=== PATIENT | male | born 1940 | race Caucasian/White ===

== ENCOUNTER 2016-09-14 11:04 | Emergency (ER) | payer MEDICARE, BC ==
[~2016-09-14] VITALS: Ht 177.8 cm; Wt 114.4 kg
[~2016-09-14 11:04] MED LIST: ASPI325T4 PO; ATOR80TA75 PO; CELE200C PO; HYDR-3138 PO; LISI1TAB7 PO; NAPR220T77 PO
[2016-09-14] MEDS ORDERED: MECLIZINE CHEWABLE 25 MG TAB ONE (11:54)
[2016-09-14] MEDS ORDERED: MECLIZINE CHEWABLE 25 MG TAB PO ONE (12:00)
[2016-09-14] MEDS ORDERED: SODIUM CHLORIDE FLUSH 10ML SYR IVF ONE (12:00)
[2016-09-14] MEDS ORDERED: SODIUM CHLORIDE 0.9% 1,000ML IVBOLUS ONE (12:00)
[2016-09-14 12:17] LABS: HEMOGLOBIN 15.8 g/dL (13.7-18.0)
[2016-09-14 12:29] LABS: BLOOD UREA NITROGEN 18 mg/dL (7-18)
[2016-09-14 12:35] LABS: IS PT STATUS REG ER OR PRE ER? YES
[2016-09-14 13:07] VITALS: BP 170/77
== END 2016-09-14 14:15 | disposition home or self-care (01) ==
LOC: ED 14:05
DX: R00.1 Bradycardia, unspecified (principal); I10 Essential (primary) hypertension; E78.5 Hyperlipidemia, unspecified; Z96.652 Presence of left artificial knee joint; Z87.891 Personal history of nicotine dependence
CPT/HCPCS: 36415; 70450; 80048; 82040; 84484; 85025; 93005; 96360; 99285; J7030

== ENCOUNTER → 2016-10-10 | Outpatient (CLI) | payer MEDICARE, BC | END | disposition home or self-care (01) | LOC: CFH 07:44 | PROVIDERS: ATTEND Licensed Practical Nurse | DX: I65.23 Occlusion and stenosis of bilateral carotid arteries (principal); Z87.891 Personal history of nicotine dependence | CPT/HCPCS: 93880; 93978 ==

== ENCOUNTER → 2016-11-09 | Outpatient (CLI) | payer MEDICARE, BC ==
[~2016-11-09] MED LIST changes: +REGADENOSON 0.4 MG/5 ML SYRINGE ONE
== END | disposition home or self-care (01) ==
LOC: CFH 08:03
PROVIDERS: ATTEND Internal Medicine Cardiovascular Disease
DX: R94.31 Abnormal electrocardiogram [ECG] [EKG] (principal); I10 Essential (primary) hypertension; E78.5 Hyperlipidemia, unspecified
CPT/HCPCS: 78452; 93017; 93306; A9502; J2785

== ENCOUNTER → 2016-12-11 | Outpatient (CLI) | payer MEDICARE, BC ==
[~2016-12-11] MED LIST changes: +OMNIPAQUE 350 MG/ML, 100ML BOTTLE ONE; -REGADENOSON 0.4 MG/5 ML SYRINGE ONE
== END | disposition home or self-care (01) ==
LOC: RAD 12:32
PROVIDERS: ATTEND Internal Medicine Cardiovascular Disease
DX: I70.0 Atherosclerosis of aorta (principal); R00.2 Palpitations
CPT/HCPCS: 36415; 71275; 74175; 82565; Q9967

== ENCOUNTER → 2017-08-12 | Outpatient (CLI) | payer MEDICARE, BC ==
[~2017-08-12] MED LIST changes: +ASPI325T17 PO; -ASPI325T4 PO; +ATOR-2 PO; -ATOR80TA75 PO; -HYDR-3138 PO; +HYDR-3237 PO; -OMNIPAQUE 350 MG/ML, 100ML BOTTLE ONE
== END | disposition home or self-care (01) ==
LOC: RAD 14:52
PROVIDERS: ATTEND Nurse Practitioner Family
DX: G31.89 Other specified degenerative diseases of nervous system (principal); S09.90XA Unspecified injury of head, initial encounter; W19.XXXA Unspecified fall, initial encounter; Y93.89 Activity, other specified; Y92.89 Other specified places as the place of occurrence of the external cause; Y99.8 Other external cause status
CPT/HCPCS: 70450

== ENCOUNTER 2017-12-11 17:00 | Inpatient (IN) | payer MEDICARE, BC ==
[~2017-12-11] VITALS: Ht 177.8 cm; Wt 106.1 kg
[~2017-12-11 17:00] MED LIST changes: +CEFD300C37 PO; +PHEN-418 PO
[2017-12-11] MEDS ORDERED: SODIUM CHLORIDE FLUSH 10ML SYR IVF ONE (17:30)
[2017-12-11 17:38] LABS: BASOPHILS # (AUTO) 0.11 x10^3/uL (0-0.1); BASOPHILS % (AUTO) 1 % (0-1); EOSINOPHILS # (AUTO) 0.27 x10^3/uL (0-0.4); EOSINOPHILS % (AUTO) 3 % (1-7); LYMPHOCYTES # (AUTO) 2.02 x10^3/uL (1-3.4); LYMPHOCYTES % (AUTO) 21 % (22-44); MD NO; MEAN CORPUSCULAR HEMOGLOBIN 30.8 pg (27.5-34.5); MEAN CORPUSCULAR HGB CONC 33.3 g/dL (33.2-36.2); MEAN CORPUSCULAR VOLUME 92.5 fL (81-97); MEAN PLATELET VOLUME 8.6 fL (7.4-10.4); MONOCYTES # (AUTO) 0.69 x10^3/uL (0.2-0.8); MONOCYTES % (AUTO) 7 % (2-9); NEUTROPHILS # (AUTO) 6.39 x10^3/uL (1.8-6.8); NEUTROPHILS % (AUTO) 67 % (42-75); PLATELET COUNT 343 x10^3/uL (130-400); RED BLOOD COUNT 4.73 x10^6/uL (4.38-5.82); RED CELL DISTRIBUTION WIDTH 13.7 % (9.4-14.8)
[2017-12-11 17:39] LABS: INTERNATIONAL NORMALIZED RATIO 1.04 (0.93-1.1); PROTHROMBIN TIME 10.7 Seconds (9.6-11.5)
[2017-12-11] MEDS ORDERED: ASPI-496 PO (17:40)
[2017-12-11] MEDS ORDERED: NAPR220T77 PO (17:40)
[2017-12-11 17:42] LABS: ALANINE AMINOTRANSFERASE 41 U/L (12-78); ALBUMIN 3.9 g/dL (3.4-5.0); ANION GAP 6 mmol/L (5-15); CALCIUM 8.9 mg/dL (8.5-10.1); CHLORIDE 108 mmol/L (98-107); CREATININE 1.28 mg/dL (0.7-1.3)
[2017-12-11 17:47] LABS: ALKALINE PHOSPHATASE 96 U/L (45-117); FREE T4 (FREE THYROXINE) 1.15 ng/dL (0.76-1.46); TOTAL PROTEIN 7.2 g/dL (6.4-8.2); TROPONIN I < 0.015 ng/mL (0.000-0.045)
[2017-12-11 17:52] LABS: THYROID STIMULATING HORMONE 0.923 mIU/L (0.358-3.740)
[2017-12-11] MEDS ORDERED: SODIUM CHLORIDE FLUSH 10ML SYR IVF PRN (18:30)
[2017-12-11] MEDS ORDERED: ONDANSETRON ODT 4 MG PO PRN (20:00)
[2017-12-11] MEDS ORDERED: ACETAMINOPHEN 325 MG TABLET PO PRN (20:00)
[2017-12-11] MEDS ORDERED: TEMAZEPAM 15 MG CAPSULE PO PRN (20:00)
[2017-12-11] MEDS ORDERED: DOCUSATE 100 MG CAPSULE PO PRN (20:00)
[2017-12-11 20:17] LABS: TROPONIN I < 0.015 ng/mL (0.000-0.045)
[2017-12-11] MEDS ORDERED: ATORVASTATIN 80 MG TABLET PO SCH (21:00)
[2017-12-11 22:56] VITALS: BP 130/69
[2017-12-12 01:32] VITALS: BP 115/58
[2017-12-12 03:12] LABS: ANION GAP 5 mmol/L (5-15); CALCIUM 8.5 mg/dL (8.5-10.1); CHLORIDE 108 mmol/L (98-107); CHOL/HDL RATIO 2.6; CHOLESTEROL, TOTAL 118 mg/dL (140-239); CREATININE 1.04 mg/dL (0.7-1.3); HDL CHOL % 39 % (26-37); HDL CHOLESTEROL (DIRECT) 46 mg/dL (40-60); LDL CHOLESTEROL,CALCULATED 21 mg/dL (54-169); LDL/HDL RATIO 0.5 (0.5-3.0); TRIGLYCERIDES 256 mg/dL (50-200); TROPONIN I < 0.015 ng/mL (0.000-0.045); VLDL CHOLESTEROL 51 mg/dL (0-25)
[2017-12-12 07:04] VITALS: BP 126/60
[2017-12-12] MEDS ORDERED: CEFAZOLIN PMX 1GM/50ML 50 ML IVPB ONE (08:00)
[2017-12-12] MEDS: ASPIRIN 81 MG TABLET EC PO SCH (08:08)
[2017-12-12] MEDS ORDERED: ATORVASTATIN 80 MG TABLET PO SCH (09:00)
[2017-12-12] MEDS: SODIUM CHLORIDE 0.9% 1,000 ML IV SCH ×3 (10:17→20:43)
[2017-12-12] MEDS ORDERED: LIDOCAINE/PF 1%, 30ML ONE (14:04)
[2017-12-12] MEDS ORDERED: MIDAZOLAM 1 MG/ML, 5ML ONE (14:04)
[2017-12-12] MEDS ORDERED: FENTANYL PF 100 MCG/2ML ONE (14:04)
[2017-12-12] MEDS ORDERED: CEFAZOLIN 1,000 MG ONE (14:05)
[2017-12-12 15:49] VITALS: BP 147/79
[2017-12-12] MEDS ORDERED: ACETAMINOPHEN 325 MG TABLET PO PRN (16:00)
[2017-12-12] MEDS ORDERED: HYDROcodone/APAP 5/325 TABLET PO PRN (16:00)
[2017-12-12 18:34] VITALS: BP 134/74
[2017-12-12] MEDS: SODIUM CHLORIDE FLUSH 10ML SYR IVF SCH (21:00)
[2017-12-12] MEDS: CEFAZOLIN PMX 1GM/50ML 50 ML IVPB SCH (23:21)
[2017-12-13 01:52] VITALS: BP 126/68
[2017-12-13 05:43] LABS: CHLORIDE 109 mmol/L (98-107)
[2017-12-13 05:46] LABS: ANION GAP 6 mmol/L (5-15); CALCIUM 8.3 mg/dL (8.5-10.1); CREATININE 0.75 mg/dL (0.7-1.3)
[2017-12-13 06:11] LABS: BASOPHILS # (AUTO) 0.09 x10^3/uL (0-0.1); BASOPHILS % (AUTO) 1 % (0-1); EOSINOPHILS # (AUTO) 0.24 x10^3/uL (0-0.4); EOSINOPHILS % (AUTO) 3 % (1-7); LYMPHOCYTES # (AUTO) 1.76 x10^3/uL (1-3.4); LYMPHOCYTES % (AUTO) 25 % (22-44); MD SCAN; MEAN CORPUSCULAR HGB CONC 33.6 g/dL (33.2-36.2); MEAN CORPUSCULAR VOLUME 92.2 fL (81-97); MEAN PLATELET VOLUME 8.7 fL (7.4-10.4); MONOCYTES # (AUTO) 0.57 x10^3/uL (0.2-0.8); MONOCYTES % (AUTO) 8 % (2-9); NEUTROPHILS # (AUTO) 4.45 x10^3/uL (1.8-6.8); NEUTROPHILS % (AUTO) 63 % (42-75); PLATELET COUNT 248 x10^3/uL (130-400); RED BLOOD COUNT 4.22 x10^6/uL (4.38-5.82)
[2017-12-13] MEDS: SODIUM CHLORIDE 0.9% 1,000 ML IV SCH (07:13)
[2017-12-13] MEDS: ASPIRIN 81 MG TABLET EC PO SCH (07:16)
[2017-12-13] MEDS: CEFAZOLIN PMX 1GM/50ML 50 ML IVPB SCH (07:16)
[2017-12-13] MEDS: SODIUM CHLORIDE FLUSH 10ML SYR IVF SCH (07:16)
[2017-12-13 08:38] VITALS: BP 144/75
[2017-12-13 13:31] VITALS: BP 130/68
== END 2017-12-13 14:07 | disposition home or self-care (01) | DRG 242 ==
LOC: ED 17:53 → EDIP 18:10 → 5SO 20:11 → DCLOUNGE 12-13 13:50
PROVIDERS: ADMIT Internal Medicine; ATTEND Internal Medicine
PROC: 0JH606Z Insertion of Pacemaker, Dual Chamber into Chest Subcutaneous Tissue and Fascia, Open Approach (ICD-10-PCS; principal; 2017-12-12)
PROC: 02H63JZ Insertion of Pacemaker Lead into Right Atrium, Percutaneous Approach (ICD-10-PCS; 2017-12-12)
PROC: 02HK3JZ Insertion of Pacemaker Lead into Right Ventricle, Percutaneous Approach (ICD-10-PCS; 2017-12-12)
DX: I49.5 Sick sinus syndrome (principal); N17.0 Acute kidney failure with tubular necrosis; I44.2 Atrioventricular block, complete; J98.11 Atelectasis; I10 Essential (primary) hypertension; E78.5 Hyperlipidemia, unspecified; I13.10 Hypertensive heart and chronic kidney disease without heart failure, with stage 1 through stage 4 chronic kidney disease, or unspecified chronic kidney disease; Z96.652 Presence of left artificial knee joint; M19.90 Unspecified osteoarthritis, unspecified site; N40.0 Benign prostatic hyperplasia without lower urinary tract symptoms; Z80.3 Family history of malignant neoplasm of breast; Z80.7 Family history of other malignant neoplasms of lymphoid, hematopoietic and related tissues; Z87.891 Personal history of nicotine dependence; Z79.82 Long term (current) use of aspirin; Z79.899 Other long term (current) drug therapy; Z87.828 Personal history of other (healed) physical injury and trauma
CPT/HCPCS: 33208; 36415; 71045; 80048; 80053; 80061; 83735; 84100; 84439; 84443; 84484; 85025; 85610; 85730; 93005; 99156; 99157; 99285; C1779; C1785; C1892; C8929; J0690; J2250; J3010; J3490; J7030

== ENCOUNTER 2018-01-13 08:18 | Day surgery (SDC) | payer MEDICARE, BC ==
[~2018-01-13] VITALS: Ht 177.8 cm; Wt 100.0 kg
[~2018-01-13 08:18] MED LIST changes: +ASPI-496 PO
[2018-01-13 08:54] VITALS: BP 117/72
[2018-01-13] MEDS ORDERED: SODIUM CHLORIDE 0.9% 1,000 ML IV ONE (09:00)
[2018-01-13] MEDS ORDERED: POLY17PO3 PO (09:03)
[2018-01-13] MEDS ORDERED: FURO20TA3 PO (09:03)
[2018-01-13] MEDS ORDERED: FLUO20CA8 PO (09:03)
[2018-01-13] MEDS ORDERED: AMLO1CAP15 PO (09:03)
[2018-01-13] MEDS ORDERED: METF500T5 PO (09:03)
[2018-01-13] MEDS ORDERED: APIX5TAB PO (09:04)
[2018-01-13 09:06] LABS: BASOPHILS # (AUTO) 0.09 x10^3/uL (0-0.1); BASOPHILS % (AUTO) 1 % (0-1); EOSINOPHILS # (AUTO) 0.26 x10^3/uL (0-0.4); EOSINOPHILS % (AUTO) 3 % (1-7); LYMPHOCYTES # (AUTO) 1.63 x10^3/uL (1-3.4); LYMPHOCYTES % (AUTO) 19 % (22-44); MD NO; MEAN CORPUSCULAR HEMOGLOBIN 30.4 pg (27.5-34.5); MEAN CORPUSCULAR HGB CONC 33.4 g/dL (33.2-36.2); MEAN CORPUSCULAR VOLUME 90.9 fL (81-97); MEAN PLATELET VOLUME 8.2 fL (7.4-10.4); MONOCYTES # (AUTO) 0.48 x10^3/uL (0.2-0.8); MONOCYTES % (AUTO) 6 % (2-9); NEUTROPHILS # (AUTO) 6.17 x10^3/uL (1.8-6.8); NEUTROPHILS % (AUTO) 72 % (42-75); PLATELET COUNT 268 x10^3/uL (130-400); RED CELL DISTRIBUTION WIDTH 13.8 % (9.4-14.8)
[2018-01-13 09:17] LABS: ANION GAP 10 mmol/L (5-15); CHLORIDE 109 mmol/L (98-107); CREATININE 1.04 mg/dL (0.7-1.3)
[2018-01-13] MEDS ORDERED: PROPOFOL 10 MG/ML, 20ML ONE (10:48)
== END 2018-01-13 12:44 ==
LOC: CACL 08:18
PROVIDERS: ATTEND Internal Medicine Cardiovascular Disease
DX: I48.91 Unspecified atrial fibrillation (principal); E78.2 Mixed hyperlipidemia; I10 Essential (primary) hypertension; I70.0 Atherosclerosis of aorta; G47.33 Obstructive sleep apnea (adult) (pediatric)
CPT/HCPCS: 36415; 80048; 85025; 92960; 93312; 93321; 93325; J2704

== ENCOUNTER 2018-03-11 08:37 | Inpatient (IN) | payer MEDICARE, BC ==
[~2018-03-11] VITALS: Ht 177.8 cm; Wt 96.5 kg
[~2018-03-11 08:37] MED LIST changes: +AMLO1CAP15 PO; +APIX5TAB PO; +FLUO20CA8 PO; +FURO20TA3 PO; +METF500T17 PO; +POLY17PO3 PO
[2018-03-11] MEDS ORDERED: PLEASE ENTER HEIGHT AND WEIGHT MC SCH (09:00)
[2018-03-11] MEDS ORDERED: SOTALOL 80MG TABLET ONE (11:11)
[2018-03-11 11:15] VITALS: BP 122/78
[2018-03-11] MEDS: SOTALOL 80MG TABLET PO SCH ×2 (11:18→22:21)
[2018-03-11 11:43] LABS: ANION GAP 8 mmol/L (5-15); CALCIUM 8.4 mg/dL (8.5-10.1); CHLORIDE 110 mmol/L (98-107); CHOLESTEROL, TOTAL 119 mg/dL (140-239); CREATININE 0.92 mg/dL (0.7-1.3); TRIGLYCERIDES 94 mg/dL (50-200); VLDL CHOLESTEROL 19 mg/dL (0-25)
[2018-03-11 11:47] LABS: CHOL/HDL RATIO 1.9; FREE T4 (FREE THYROXINE) 1.07 ng/dL (0.76-1.46); HDL CHOL % 53 % (26-37); HDL CHOLESTEROL (DIRECT) 63 mg/dL (40-60); LDL CHOLESTEROL,CALCULATED 37 mg/dL (54-169); LDL/HDL RATIO 0.6 (0.5-3.0); TROPONIN I < 0.015 ng/mL (0.000-0.045)
[2018-03-11 11:53] LABS: THYROID STIMULATING HORMONE 0.509 mIU/L (0.358-3.740)
[2018-03-11 15:07] VITALS: BP 117/68
[2018-03-11 15:26] LABS: TROPONIN I < 0.015 ng/mL (0.000-0.045)
[2018-03-11] MEDS: metFORMIN 500 MG TABLET PO SCH (17:03)
[2018-03-11 20:10] VITALS: BP 125/76
[2018-03-11] MEDS ORDERED: SOTALOL 80MG TABLET PO SCH (21:00)
[2018-03-11] MEDS: ATORVASTATIN 80 MG TABLET PO SCH (21:00)
[2018-03-11 21:43] LABS: TROPONIN I < 0.015 ng/mL (0.000-0.045)
[2018-03-11] MEDS: APIXABAN 5 MG TABLET PO SCH (22:21)
[2018-03-12 01:47] VITALS: BP 124/72
[2018-03-12 07:16] VITALS: BP 136/82
[2018-03-12] MEDS: SOTALOL 80MG TABLET PO SCH ×2 (09:03→19:52)
[2018-03-12] MEDS: APIXABAN 5 MG TABLET PO SCH ×2 (09:03→19:52)
[2018-03-12] MEDS: AMLODIPINE 10 MG TAB PO SCH (09:03)
[2018-03-12] MEDS: FUROSEMIDE 20 MG TABLET PO SCH (09:03)
[2018-03-12] MEDS: BENAZEPRIL 20 MG TABLET PO SCH (09:04)
[2018-03-12] MEDS: FLUOXETINE HCL 20 MG CAPSULE PO SCH (09:04)
[2018-03-12] MEDS: metFORMIN 500 MG TABLET PO SCH ×2 (09:14→17:50)
[2018-03-12 13:44] VITALS: BP 120/66
[2018-03-12] MEDS: ATORVASTATIN 80 MG TABLET PO SCH (19:52)
[2018-03-12 20:20] VITALS: BP 109/73
[2018-03-13 01:22] VITALS: BP 125/74
[2018-03-13 07:42] VITALS: BP 138/76
[2018-03-13] MEDS: AMLODIPINE 10 MG TAB PO SCH (07:57)
[2018-03-13] MEDS: SOTALOL 80MG TABLET PO SCH (07:57)
[2018-03-13] MEDS: metFORMIN 500 MG TABLET PO SCH ×2 (07:57→16:09)
[2018-03-13] MEDS: APIXABAN 5 MG TABLET PO SCH (07:58)
[2018-03-13] MEDS: FLUOXETINE HCL 20 MG CAPSULE PO SCH (07:58)
[2018-03-13] MEDS: FUROSEMIDE 20 MG TABLET PO SCH (07:58)
[2018-03-13] MEDS: BENAZEPRIL 20 MG TABLET PO SCH (07:58)
[2018-03-13 13:24] VITALS: BP 127/82
[2018-03-13] MEDS ORDERED: PROPOFOL 10 MG/ML, 20ML ONE (15:34)
[2018-03-13] MEDS ORDERED: SOTA80TA18 PO (15:48)
== END 2018-03-13 16:40 | disposition home or self-care (01) | DRG 309 ==
LOC: 5SO 08:37 → DCLOUNGE 03-13 16:33
PROVIDERS: ADMIT Internal Medicine Cardiovascular Disease; ATTEND Internal Medicine Cardiovascular Disease
PROC: 4B02XSZ Measurement of Cardiac Pacemaker, External Approach (ICD-10-PCS; 2018-03-13)
PROC: 5A2204Z Restoration of Cardiac Rhythm, Single (ICD-10-PCS; principal; 2018-03-13 12:00)
DX: I48.0 Paroxysmal atrial fibrillation (principal); D68.69 Other thrombophilia; G47.30 Sleep apnea, unspecified; E78.2 Mixed hyperlipidemia; I10 Essential (primary) hypertension; I65.21 Occlusion and stenosis of right carotid artery; E66.9 Obesity, unspecified; Z96.653 Presence of artificial knee joint, bilateral; I70.0 Atherosclerosis of aorta; R73.01 Impaired fasting glucose; R09.02 Hypoxemia; Z87.891 Personal history of nicotine dependence; Z80.8 Family history of malignant neoplasm of other organs or systems; Z79.899 Other long term (current) drug therapy; Z95.0 Presence of cardiac pacemaker; Z79.01 Long term (current) use of anticoagulants; Z68.30 Body mass index [BMI] 30.0-30.9, adult
CPT/HCPCS: 36415; 71046; 80048; 80061; 84439; 84443; 84484; 85014; 85018; 93005; G0378; J2704

== ENCOUNTER 2018-03-19 14:35 | Emergency (ER) | payer MEDICARE, BC ==
[~2018-03-19] VITALS: Ht 177.8 cm; Wt 102.0 kg
[~2018-03-19 14:35] MED LIST changes: +SOTA80TA18 PO
[2018-03-19 15:13] LABS: BASOPHILS # (AUTO) 0.04 x10^3/uL (0-0.1); BASOPHILS % (AUTO) 1 % (0-1); EOSINOPHILS # (AUTO) 0.24 x10^3/uL (0-0.4); EOSINOPHILS % (AUTO) 3 % (1-7); LYMPHOCYTES # (AUTO) 1.59 x10^3/uL (1-3.4); LYMPHOCYTES % (AUTO) 18 % (22-44); MD NO; MEAN CORPUSCULAR HEMOGLOBIN 31.1 pg (27.5-34.5); MEAN CORPUSCULAR HGB CONC 33.8 g/dL (33.2-36.2); MEAN CORPUSCULAR VOLUME 91.8 fL (81-97); MEAN PLATELET VOLUME 8.4 fL (7.4-10.4); MONOCYTES # (AUTO) 0.74 x10^3/uL (0.2-0.8); MONOCYTES % (AUTO) 9 % (2-9); NEUTROPHILS # (AUTO) 6.06 x10^3/uL (1.8-6.8); NEUTROPHILS % (AUTO) 70 % (42-75); PLATELET COUNT 258 x10^3/uL (130-400); RED BLOOD COUNT 5.18 x10^6/uL (4.38-5.82); RED CELL DISTRIBUTION WIDTH 14.2 % (9.4-14.8)
[2018-03-19 15:22] LABS: ALBUMIN 4.2 g/dL (3.4-5.0); ANION GAP 7 mmol/L (5-15); CALCIUM 9.1 mg/dL (8.5-10.1); CHLORIDE 108 mmol/L (98-107); CREATININE 0.86 mg/dL (0.7-1.3)
[2018-03-19 15:26] LABS: TROPONIN I < 0.015 ng/mL (0.000-0.045)
[2018-03-19] MEDS ORDERED: CYAN1TAB29 PO (15:29)
[2018-03-19 15:57] VITALS: BP 129/72
== END 2018-03-19 17:28 | disposition home or self-care (01) ==
LOC: ED 15:27
DX: R56.9 Unspecified convulsions (principal); R55 Syncope and collapse; I10 Essential (primary) hypertension; E78.5 Hyperlipidemia, unspecified; I48.91 Unspecified atrial fibrillation; Z87.891 Personal history of nicotine dependence; Z96.652 Presence of left artificial knee joint; Z95.0 Presence of cardiac pacemaker
CPT/HCPCS: 36415; 70450; 71045; 80048; 82040; 84484; 85025; 93005; 99285

== ENCOUNTER 2018-03-28 12:10 | Observation (INO) | payer MEDICARE, BC ==
[~2018-03-28] VITALS: Ht 177.8 cm; Wt 101.0 kg
[~2018-03-28 12:10] MED LIST changes: +CYAN1TAB29 PO
[2018-03-28] MEDS ORDERED: ASPIRIN 81 MG TABLET CHEW PO ONE (13:30)
[2018-03-28 13:58] LABS: ALANINE AMINOTRANSFERASE 37 U/L (12-78); ALBUMIN 3.7 g/dL (3.4-5.0); ANION GAP 8 mmol/L (5-15); CALCIUM 8.8 mg/dL (8.5-10.1); CHLORIDE 105 mmol/L (98-107); CREATININE 1.04 mg/dL (0.7-1.3); T4 (THYROXINE) 9.3 mcg/dL (4.5-12.1)
[2018-03-28 14:03] LABS: ALKALINE PHOSPHATASE 83 U/L (45-117); BILIRUBIN,TOTAL 1.2 mg/dL (0.2-1.0); TOTAL PROTEIN 7.3 g/dL (6.4-8.2); TROPONIN I < 0.015 ng/mL (0.000-0.045)
[2018-03-28 14:08] LABS: THYROID STIMULATING HORMONE 0.692 mIU/L (0.358-3.740)
[2018-03-28 14:12] LABS: BASOPHILS # (AUTO) 0.04 x10^3/uL (0-0.1); BASOPHILS % (AUTO) 1 % (0-1); EOSINOPHILS # (AUTO) 0.19 x10^3/uL (0-0.4); EOSINOPHILS % (AUTO) 3 % (1-7); LYMPHOCYTES # (AUTO) 1.49 x10^3/uL (1-3.4); LYMPHOCYTES % (AUTO) 20 % (22-44); MD NO; MEAN CORPUSCULAR HEMOGLOBIN 31.2 pg (27.5-34.5); MEAN CORPUSCULAR HGB CONC 33.9 g/dL (33.2-36.2); MEAN CORPUSCULAR VOLUME 92.2 fL (81-97); MEAN PLATELET VOLUME 8.5 fL (7.4-10.4); MONOCYTES # (AUTO) 0.63 x10^3/uL (0.2-0.8); MONOCYTES % (AUTO) 8 % (2-9); NEUTROPHILS # (AUTO) 5.21 x10^3/uL (1.8-6.8); NEUTROPHILS % (AUTO) 69 % (42-75); PLATELET COUNT 224 x10^3/uL (130-400); RED BLOOD COUNT 5.06 x10^6/uL (4.38-5.82); RED CELL DISTRIBUTION WIDTH 14.1 % (9.4-14.8)
[2018-03-28] MEDS ORDERED: ONDANSETRON 2MG/ML, 2ML IVPush PRN (15:30)
[2018-03-28] MEDS ORDERED: LABETALOL 5MG/ML, 20ML IVPush PRN (15:30)
[2018-03-28] MEDS ORDERED: ONDANSETRON ODT 4 MG PO PRN (15:30)
[2018-03-28] MEDS ORDERED: ENOXAPARIN 40 MG/0.4 ML SQ SCH (15:30)
[2018-03-28] MEDS ORDERED: POLYETHYLENE GLYCOL 17 GM PACKET PO PRN ×2 (15:30→17:30)
[2018-03-28] MEDS ORDERED: SODIUM CHLORIDE FLUSH 10ML SYR IVF PRN (15:30)
[2018-03-28 16:01] LABS: FREE T4 (FREE THYROXINE) 1.24 ng/dL (0.76-1.46); TROPONIN I < 0.015 ng/mL (0.000-0.045)
[2018-03-28 20:45] VITALS: BP 100/64
[2018-03-28] MEDS ORDERED: morphine SULFATE 10 MG/ML, 1ML IVPush ONE (21:00)
[2018-03-28 21:22] LABS: TROPONIN I < 0.015 ng/mL (0.000-0.045)
[2018-03-28] MEDS: SOTALOL 80MG TABLET PO SCH (21:23)
[2018-03-28] MEDS: ATORVASTATIN 80 MG TABLET PO SCH (21:23)
[2018-03-28] MEDS: APIXABAN 5 MG TABLET PO SCH (21:24)
[2018-03-28 21:28] VITALS: BP 118/69
[2018-03-29 02:30] VITALS: BP 98/61
[2018-03-29 02:59] VITALS: BP 106/67
[2018-03-29 05:52] LABS: EOSINOPHILS % (AUTO) 4 % (1-7); MD NO
[2018-03-29 05:58] LABS: ALBUMIN 3.4 g/dL (3.4-5.0); ANION GAP 5 mmol/L (5-15); CALCIUM 8.6 mg/dL (8.5-10.1); CHLORIDE 106 mmol/L (98-107)
[2018-03-29 06:03] LABS: ALANINE AMINOTRANSFERASE 33 U/L (12-78); ALKALINE PHOSPHATASE 75 U/L (45-117); BILIRUBIN,TOTAL 0.8 mg/dL (0.2-1.0); CREATININE 0.94 mg/dL (0.7-1.3); TOTAL PROTEIN 6.4 g/dL (6.4-8.2)
[2018-03-29 06:09] LABS: BASOPHILS # (AUTO) 0.06 x10^3/uL (0-0.1); BASOPHILS % (AUTO) 1 % (0-1); EOSINOPHILS # (AUTO) 0.26 x10^3/uL (0-0.4); LYMPHOCYTES # (AUTO) 1.79 x10^3/uL (1-3.4); LYMPHOCYTES % (AUTO) 28 % (22-44); MEAN CORPUSCULAR HEMOGLOBIN 31.4 pg (27.5-34.5); MEAN CORPUSCULAR HGB CONC 33.8 g/dL (33.2-36.2); MEAN CORPUSCULAR VOLUME 92.8 fL (81-97); MEAN PLATELET VOLUME 8.4 fL (7.4-10.4); MONOCYTES % (AUTO) 9 % (2-9); NEUTROPHILS # (AUTO) 3.79 x10^3/uL (1.8-6.8); NEUTROPHILS % (AUTO) 59 % (42-75); PLATELET COUNT 201 x10^3/uL (130-400); RED BLOOD COUNT 4.62 x10^6/uL (4.38-5.82); RED CELL DISTRIBUTION WIDTH 13.9 % (9.4-14.8)
[2018-03-29] MEDS: SOTALOL 80MG TABLET PO SCH ×2 (08:05→20:38)
[2018-03-29] MEDS: SENNA/DOCUSATE TABLET PO SCH (08:05)
[2018-03-29] MEDS: BENAZEPRIL 20 MG TABLET PO SCH (08:05)
[2018-03-29] MEDS: AMLODIPINE 10 MG TAB PO SCH (08:06)
[2018-03-29 08:07] VITALS: BP 112/69
[2018-03-29] MEDS: APIXABAN 5 MG TABLET PO SCH ×2 (08:20→20:38)
[2018-03-29] MEDS: FLUOXETINE HCL 20 MG CAPSULE PO SCH (08:20)
[2018-03-29] MEDS: CYANOCOBALAMIN 1,000 MCG TABLET PO SCH (08:20)
[2018-03-29] MEDS: FOLIC ACID 1 MG TABLET PO SCH (08:20)
[2018-03-29] MEDS: FUROSEMIDE 20 MG TABLET PO SCH (08:20)
[2018-03-29] MEDS ORDERED: TEMPLATE NON-FORMULARY MED. (Cyanocobalamin/Folic Acid** (Vitamin B12-Folic Acid Tablet**) PO SCH (09:00)
[2018-03-29] MEDS ORDERED: AMLODIPINE BESYLATE PO SCH (09:00)
[2018-03-29] MEDS ORDERED: BENAZEPRIL PO SCH (09:00)
[2018-03-29] MEDS ORDERED: [UNRECOGNIZED DRUG - OTHER] PO SCH (09:00)
[2018-03-29] MEDS ORDERED: SINCALIDE (KINEVAC) 5 MCG ONE (11:55)
[2018-03-29 13:40] VITALS: BP 116/72
[2018-03-29 20:06] VITALS: BP 113/70
[2018-03-29] MEDS: ATORVASTATIN 80 MG TABLET PO SCH (20:38)
[2018-03-29 23:40] LABS: TROPONIN I < 0.015 ng/mL (0.000-0.045)
[2018-03-30 01:16] VITALS: BP 134/80
[2018-03-30 05:09] LABS: BASOPHILS # (AUTO) 0.06 x10^3/uL (0-0.1); BASOPHILS % (AUTO) 1 % (0-1); EOSINOPHILS # (AUTO) 0.27 x10^3/uL (0-0.4); EOSINOPHILS % (AUTO) 4 % (1-7); LYMPHOCYTES # (AUTO) 1.96 x10^3/uL (1-3.4); LYMPHOCYTES % (AUTO) 26 % (22-44); MD NO; MEAN CORPUSCULAR HEMOGLOBIN 30.7 pg (27.5-34.5); MEAN CORPUSCULAR HGB CONC 33.3 g/dL (33.2-36.2); MEAN CORPUSCULAR VOLUME 92.3 fL (81-97); MEAN PLATELET VOLUME 8.3 fL (7.4-10.4); MONOCYTES # (AUTO) 0.61 x10^3/uL (0.2-0.8); MONOCYTES % (AUTO) 8 % (2-9); NEUTROPHILS # (AUTO) 4.59 x10^3/uL (1.8-6.8); NEUTROPHILS % (AUTO) 61 % (42-75); PLATELET COUNT 203 x10^3/uL (130-400); RED BLOOD COUNT 4.96 x10^6/uL (4.38-5.82); RED CELL DISTRIBUTION WIDTH 14.2 % (9.4-14.8)
[2018-03-30 05:23] LABS: ALBUMIN 3.5 g/dL (3.4-5.0); ANION GAP 8 mmol/L (5-15); CALCIUM 8.2 mg/dL (8.5-10.1); CHLORIDE 107 mmol/L (98-107); TROPONIN I < 0.015 ng/mL (0.000-0.045)
[2018-03-30 05:28] LABS: ALANINE AMINOTRANSFERASE 33 U/L (12-78); ALKALINE PHOSPHATASE 82 U/L (45-117); BILIRUBIN,TOTAL 0.9 mg/dL (0.2-1.0); CREATININE 0.84 mg/dL (0.7-1.3); TOTAL PROTEIN 6.7 g/dL (6.4-8.2)
[2018-03-30] MEDS ORDERED: PANTOPRAZOLE 40 MG IV IVPush SCH (07:30)
[2018-03-30] MEDS ORDERED: MAALOX/HYOSCYAMINE/LIDOCAINE 45 ML BTL PO ONE (07:30)
[2018-03-30] MEDS ORDERED: REGADENOSON 0.4 MG/5 ML SYRINGE ONE (08:38)
[2018-03-30 08:39] VITALS: BP 133/77
[2018-03-30] MEDS ORDERED: BENAZEPRIL 10 MG TABLET ONE (10:18)
[2018-03-30] MEDS: APIXABAN 5 MG TABLET PO SCH (10:48)
[2018-03-30] MEDS: SOTALOL 80MG TABLET PO SCH (10:48)
[2018-03-30] MEDS: AMLODIPINE 10 MG TAB PO SCH (10:49)
[2018-03-30] MEDS: BENAZEPRIL 20 MG TABLET PO SCH (10:49)
[2018-03-30] MEDS: SENNA/DOCUSATE TABLET PO SCH (10:50)
[2018-03-30] MEDS: FLUOXETINE HCL 20 MG CAPSULE PO SCH (10:50)
[2018-03-30] MEDS: FUROSEMIDE 20 MG TABLET PO SCH (10:50)
[2018-03-30] MEDS: CYANOCOBALAMIN 1,000 MCG TABLET PO SCH (10:50)
[2018-03-30] MEDS: FOLIC ACID 1 MG TABLET PO SCH (10:51)
[2018-03-30 10:53] VITALS: BP 136/77
[2018-03-30] MEDS ORDERED: AMLO1CAP10 PO (13:22)
[2018-03-30] MEDS ORDERED: OMEP-110 PO (13:22)
[2018-03-30] MEDS ORDERED: CARV3.1212 PO (13:22)
== END 2018-03-30 14:25 | disposition home or self-care (01) ==
LOC: ED 15:17 → EDIP 15:18 → ED 16:01 → 5SO 16:33
PROVIDERS: ADMIT Hospitalist; ATTEND Hospitalist
DX: R07.89 Other chest pain (principal); E11.9 Type 2 diabetes mellitus without complications; E78.5 Hyperlipidemia, unspecified; I10 Essential (primary) hypertension; I48.91 Unspecified atrial fibrillation; K21.9 Gastro-esophageal reflux disease without esophagitis; D68.69 Other thrombophilia; Z80.7 Family history of other malignant neoplasms of lymphoid, hematopoietic and related tissues; Z95.0 Presence of cardiac pacemaker; Z87.891 Personal history of nicotine dependence; Z96.652 Presence of left artificial knee joint
CPT/HCPCS: 36415; 71046; 76700; 78227; 78452; 80053; 83690; 83735; 83880; 84100; 84436; 84439; 84443; 84484; 85025; 93005; 93017; 96374; 96375; 99285; A9502; A9537; C9113; C9898; G0378; J2270; J2785; J2805

== ENCOUNTER 2019-04-29 10:13 | Day surgery (SDC) | payer MEDICARE, BC ==
[~2019-04-29] VITALS: Ht 177.8 cm; Wt 100.0 kg
[~2019-04-29 10:13] MED LIST changes: +AMLO1CAP11 PO; -AMLO1CAP15 PO; +AMLO1CAP54 PO; +ASPI81TA45 PO; +CARV3.1212 PO; +CLOP75TA PO; +LISI1TAB20 PO; -LISI1TAB7 PO; +OMEP-110 PO; +POLY17PO29 PO; -POLY17PO3 PO
[2019-04-29 12:42] VITALS: BP 165/87
[2019-04-29] MEDS ORDERED: APIX5TAB PO (12:54)
[2019-04-29] MEDS ORDERED: NITR0.6T4 SL (12:54)
[2019-04-29] MEDS ORDERED: CLOP75TA52 PO (12:54)
[2019-04-29 13:07] LABS: BASOPHILS # (AUTO) 0.05 x10^3/uL (0-0.1); BASOPHILS % (AUTO) 1 % (0-1); EOSINOPHILS # (AUTO) 0.27 x10^3/uL (0-0.4); EOSINOPHILS % (AUTO) 4 % (1-7); LYMPHOCYTES # (AUTO) 1.54 x10^3/uL (1-3.4); LYMPHOCYTES % (AUTO) 22 % (22-44); MD NO; MEAN CORPUSCULAR HEMOGLOBIN 31.2 pg (27.5-34.5); MEAN CORPUSCULAR HGB CONC 33.2 g/dL (33.2-36.2); MEAN CORPUSCULAR VOLUME 94.2 fL (81-97); MEAN PLATELET VOLUME 8.4 fL (7.4-10.4); MONOCYTES # (AUTO) 0.43 x10^3/uL (0.2-0.8); MONOCYTES % (AUTO) 6 % (2-9); NEUTROPHILS # (AUTO) 4.64 x10^3/uL (1.8-6.8); NEUTROPHILS % (AUTO) 67 % (42-75); PLATELET COUNT 244 x10^3/uL (130-400); RED BLOOD COUNT 4.71 x10^6/uL (4.38-5.82); RED CELL DISTRIBUTION WIDTH 13.9 % (9.4-14.8)
[2019-04-29 13:12] LABS: ANION GAP 5 mmol/L (5-15); CALCIUM 8.9 mg/dL (8.5-10.1); CHLORIDE 110 mmol/L (98-107); CREATININE 0.94 mg/dL (0.7-1.3)
[2019-04-29] MEDS ORDERED: VERAPAMIL 2.5 MG/ML, 2ML ONE (13:16)
[2019-04-29] MEDS ORDERED: MIDAZOLAM 1 MG/ML, 5ML ONE (13:16)
[2019-04-29] MEDS ORDERED: FENTANYL PF 100 MCG/2ML ONE (13:16)
[2019-04-29] MEDS ORDERED: BIVALIRUDIN 250 MG ONE (13:16)
[2019-04-29] MEDS ORDERED: HEPARIN 1,000 UNITS/ML, 10ML ONE (13:17)
[2019-04-29] MEDS ORDERED: LIDOCAINE-MPF 1%, 5ML ONE (13:17)
== END 2019-04-29 15:45 | disposition home or self-care (01) ==
LOC: CACL 10:13
PROVIDERS: ATTEND Internal Medicine Cardiovascular Disease
DX: I25.110 Atherosclerotic heart disease of native coronary artery with unstable angina pectoris (principal); I25.84 Coronary atherosclerosis due to calcified coronary lesion; I25.83 Coronary atherosclerosis due to lipid rich plaque; I48.91 Unspecified atrial fibrillation; I10 Essential (primary) hypertension; E78.2 Mixed hyperlipidemia; E11.9 Type 2 diabetes mellitus without complications; E66.3 Overweight; Z68.32 Body mass index [BMI] 32.0-32.9, adult; Z72.89 Other problems related to lifestyle; Z79.01 Long term (current) use of anticoagulants; Z79.84 Long term (current) use of oral hypoglycemic drugs; Z79.899 Other long term (current) drug therapy; Z86.73 Personal history of transient ischemic attack (TIA), and cerebral infarction without residual deficits; Z95.0 Presence of cardiac pacemaker; Z96.653 Presence of artificial knee joint, bilateral; Z98.890 Other specified postprocedural states; Z80.9 Family history of malignant neoplasm, unspecified
CPT/HCPCS: 36415; 80048; 85025; 93458; 93571; 99156; C1769; C1894; J1644; J2250; J3010; Q9967; J0583

== ENCOUNTER 2019-05-06 14:23 | Outpatient (CLI) | payer MEDICARE, BC ==
[~2019-05-06 14:23] MED LIST changes: +CLOP75TA52 PO; +NITR0.6T4 SL
== END 2019-05-06 23:59 | disposition home or self-care (01) ==
LOC: CVU 14:23
PROVIDERS: ATTEND Internal Medicine Cardiovascular Disease
DX: I08.8 Other rheumatic multiple valve diseases (principal); I65.23 Occlusion and stenosis of bilateral carotid arteries; R07.9 Chest pain, unspecified; E11.9 Type 2 diabetes mellitus without complications; E78.5 Hyperlipidemia, unspecified; I10 Essential (primary) hypertension; I48.91 Unspecified atrial fibrillation; Z79.02 Long term (current) use of antithrombotics/antiplatelets; I65.29 Occlusion and stenosis of unspecified carotid artery; Z85.820 Personal history of malignant melanoma of skin; Z45.018 Encounter for adjustment and management of other part of cardiac pacemaker; Z87.891 Personal history of nicotine dependence
CPT/HCPCS: 0399T; 93306; 93880

== ENCOUNTER 2019-08-16 09:58 | Emergency (ER) | payer MEDICARE, BC ==
[~2019-08-16] VITALS: Ht 177.8 cm; Wt 105.2 kg
[~2019-08-16 09:58] MED LIST changes: +FLUO20CA23 PO; -FLUO20CA8 PO
--- NOTE | 2019-08-16 10:21 | NUR ---
THIS IS A 79 YO M W/ C/O RT EYE BLURRINESS AND PERIPHERAL VISION LOSS ON THE RIGHT. PT REPORTS WORSENING ONSET LAST NIGHT. REPORTS VISION HAS BEEN GETTING WORSE SINCE A BLOOD CLOT. DENIES CP/SOB. EOMS INTACT. PT RESTING ON [employer] W/ CALL LIGHT IN REACH AND AT BEDSIDE FOR EVAL.
[2019-08-16 10:42] LABS: BASOPHILS # (AUTO) 0.04 x10^3/uL (0-0.1); BASOPHILS % (AUTO) 1 % (0-1); EOSINOPHILS # (AUTO) 0.21 x10^3/uL (0-0.4); EOSINOPHILS % (AUTO) 3 % (1-7); LYMPHOCYTES # (AUTO) 1.15 x10^3/uL (1-3.4); LYMPHOCYTES % (AUTO) 17 % (22-44); MD NO; MEAN CORPUSCULAR HEMOGLOBIN 31.2 pg (27.5-34.5); MEAN CORPUSCULAR HGB CONC 33.6 g/dL (33.2-36.2); MEAN CORPUSCULAR VOLUME 92.8 fL (81-97); MEAN PLATELET VOLUME 8.1 fL (7.4-10.4); MONOCYTES # (AUTO) 0.49 x10^3/uL (0.2-0.8); MONOCYTES % (AUTO) 7 % (2-9); NEUTROPHILS # (AUTO) 4.76 x10^3/uL (1.8-6.8); NEUTROPHILS % (AUTO) 72 % (42-75); PLATELET COUNT 232 x10^3/uL (130-400); RED BLOOD COUNT 4.84 x10^6/uL (4.38-5.82); RED CELL DISTRIBUTION WIDTH 13.5 % (9.4-14.8)
[2019-08-16 10:51] LABS: ALBUMIN 3.8 g/dL (3.4-5.0); ANION GAP 7 mmol/L (5-15); CALCIUM 8.5 mg/dL (8.5-10.1); CHLORIDE 108 mmol/L (98-107); CREATININE 0.86 mg/dL (0.7-1.3)
[2019-08-16 10:56] LABS: INTERNATIONAL NORMALIZED RATIO 1.03 (0.93-1.1); PROTHROMBIN TIME 10.9 Seconds (9.6-11.5)
--- NOTE | 2019-08-16 11:28 | NUR ---
PT AMBULATED TO THE BR W/ A STEADY GAIT.
--- NOTE | 2019-08-16 11:29 | NUR ---
[employer] SERVICES ASSOCIATE STATES THAT IT WILL BE ABOUT 15-20 MINUTES BEFORE PT WILL GO TO CT.
--- NOTE | 2019-08-16 11:59 | NUR ---
PT TO CT.
[2019-08-16] MEDS ORDERED: OMNIPAQUE 350 MG/ML, 100ML BOTTLE ONE (12:31)
[2019-08-16 13:03] VITALS: BP 123/67
--- NOTE | 2019-08-16 13:15 | NUR ---
dr wright spoke with dr enrique
--- NOTE | 2019-08-16 13:46 | NUR ---
PT SITTING ON END OF [facility]. DISCONNECTED FROM MONITORS. IV DC'D WITH CANNULA INTACT. WAITING FOR DC PAPERWORK.
== END 2019-08-16 13:59 | disposition home or self-care (01) ==
LOC: ED 11:32
DX: I63.421 Cerebral infarction due to embolism of right anterior cerebral artery (principal); H53.131 Sudden visual loss, right eye; I10 Essential (primary) hypertension
CPT/HCPCS: 36415; 70450; 70496; 70498; 80048; 82040; 85025; 85610; 93005; 99285; Q9967

== ENCOUNTER 2019-09-24 09:43 | Day surgery (SDC) | payer MEDICARE, BC ==
[~2019-09-24] VITALS: Ht 177.8 cm; Wt 100.0 kg
[2019-09-24 10:09] VITALS: BP 129/71
[2019-09-24] MEDS ORDERED: SODIUM CHLORIDE 0.9% 1,000 ML IV ONE (10:30)
[2019-09-24] MEDS ORDERED: PROPOFOL 10 MG/ML, 20ML ONE (12:15)
== END 2019-09-24 13:32 | disposition home or self-care (01) ==
LOC: CACL 09:43
PROVIDERS: ATTEND Internal Medicine Cardiovascular Disease
DX: I48.91 Unspecified atrial fibrillation (principal); I34.0 Nonrheumatic mitral (valve) insufficiency; I35.1 Nonrheumatic aortic (valve) insufficiency; E78.5 Hyperlipidemia, unspecified; I10 Essential (primary) hypertension; I25.2 Old myocardial infarction; Z86.73 Personal history of transient ischemic attack (TIA), and cerebral infarction without residual deficits; E11.9 Type 2 diabetes mellitus without complications; I25.10 Atherosclerotic heart disease of native coronary artery without angina pectoris; Z79.01 Long term (current) use of anticoagulants; Z96.653 Presence of artificial knee joint, bilateral; Z98.890 Other specified postprocedural states; Z79.82 Long term (current) use of aspirin; Z79.899 Other long term (current) drug therapy; Z98.61 Coronary angioplasty status; Z95.0 Presence of cardiac pacemaker; Z72.89 Other problems related to lifestyle; Z87.891 Personal history of nicotine dependence
CPT/HCPCS: 93312; 93321; 93325; J2704

== ENCOUNTER → 2020-07-06 | Outpatient (CLI) | payer MEDICARE, BC ==
[~2020-07-06] MED LIST changes: +OMNIPAQUE 350 MG/ML, 100ML BOTTLE ONE
== END | disposition home or self-care (01) ==
LOC: CFH 13:49
PROVIDERS: ATTEND Internal Medicine
DX: R22.1 Localized swelling, mass and lump, neck (principal); R23.4 Changes in skin texture
CPT/HCPCS: 70491; Q9967

== ENCOUNTER → 2020-08-16 | Outpatient (CLI) | payer MEDICARE, BC ==
[~2020-08-16] MED LIST changes: -OMNIPAQUE 350 MG/ML, 100ML BOTTLE ONE; -POLY17PO29 PO; +POLY17PO50 PO
== END | disposition home or self-care (01) ==
LOC: CVU 13:51
PROVIDERS: ATTEND Internal Medicine Cardiovascular Disease
DX: I65.23 Occlusion and stenosis of bilateral carotid arteries (principal)
CPT/HCPCS: 93880